=== PATIENT | female | born 1955 | race Caucasian/White ===

== ENCOUNTER 2017-06-04 11:48 | Emergency (ER) | payer OTHER ==
[~2017-06-04] VITALS: Ht 162.6 cm; Wt 70.3 kg
--- NOTE | ~2017-06-04 | EKG ---
[address] [place] [address] ELECTROCARDIOGRAM REPORT Name: BLAYNE MAR Room #: [facility]P [facility]ENTERGeeta[facility] [id number] Admission: 06/04/17 Attend Phys: Discharge: 06/04/17 Date of : 51 Report #: [id number] THIS REPORT FOR: //name// [facility] ED Test Date: 2017-06-04 Test Time: 12:21:42 Pat Name: BLAYNE MAR Department: Room: Gender: F Senior Management Consultant: [id number] : [id number] Requested By: Sheila Anderson Order Number: [id number] MD: Wilfred Crum Measurements Intervals Colp Rate: 99 P: 76 IA: 144 QRS: 54 QRSD: 81 T: 61 QT: 356 QTc: 457 Interpretive Statements Sinus rhythm No significant abnormality No previous ECG available for comparison Electronically Signed On 06-05-2017 8:30:14 CDT by Wilfred Crum [email or web address] <ELECTRONICALLY SIGNED> By: Wilfred Crum MD, [facility] 06/05/17 0830 1221 1221 Wilfred Crum MD, FACC /EPI
[2017-06-04] MEDS ORDERED: METHOTREXATE 22.5 MG PO (11:59)
[2017-06-04] MEDS ORDERED: PREDNISONE 10 M10 MG PO (11:59)
[2017-06-04] MEDS ORDERED: DULERA 200 MCG/13 GM INH (12:00)
[2017-06-04] MEDS ORDERED: ALBUTEROL2.5 MG/31 INH (12:00)
[2017-06-04] MEDS ORDERED: THEOCHRON300 MG PO (12:00)
[2017-06-04] MEDS ORDERED: VITAMIN D10000 UNIT PO (12:01)
[2017-06-04] MEDS ORDERED: OXYBUTYNIN 5 MG5 M2 PO (12:01)
[2017-06-04] MEDS ORDERED: FOLIC ACID1 MG PO (12:01)
[2017-06-04 12:23] LABS: ABSOLUTE NEUTROPHILS 5.8 thou/uL (1.4-8.2); BASOPHILS 0.6 % (0.0-2.0); HEMOGLOBIN 14.9 gm/dL (12.0-15.0); LYMPHOCYTES 25.8 % (24.0-44.0); MCHC 34.6 g/dL (28.0-37.0); MCV 92.4 fL (80.0-100.0); MONOCYTES 10.2 % (1.0-8.0); PLATELET COUNT 383 thou/uL (150-400); POLYS 61.4 % (36.0-66.0); RBC 4.65 mil/uL (4.20-5.00); RDW 14.2 % (10.5-14.5); WBC 9.5 thou/uL (4.0-11.0)
[2017-06-04 12:25] LABS: CALCIUM 9.2 mg/dL (8.5-10.1); CREATININE 0.8 mg/dL (0.6-1.0); MAGNESIUM 1.9 mg/dL (1.8-2.4); MANUAL DIFF NO; POTASSIUM 3.9 mmol/L (3.5-5.1)
[2017-06-04 13:44] VITALS: BP 113/70
== END 2017-06-04 13:46 | disposition home or self-care (01) ==
LOC: ER 11:48
PROVIDERS: Emergency Medicine
DX: R20.2 Paresthesia of skin (principal); R42 Dizziness and giddiness; R51 Headache; J45.909 Unspecified asthma, uncomplicated; M06.9 Rheumatoid arthritis, unspecified; F10.99 Alcohol use, unspecified with unspecified alcohol-induced disorder; Z88.0 Allergy status to penicillin